=== PATIENT | male | born 1960 | race Caucasian/White ===

== ENCOUNTER → 2016-08-05 | Outpatient (CLI) | payer MEDICARE, OTHER ==
[~2016-08-05] MED LIST: SALINE FLUSH 10ml SYRINGE ONE; SINCALIDE 5 MCG/VIAL IJ ONE; SODIUM CHLORIDE (Bacteriostatic) 30ml VIAL ONE
--- NOTE | 2016-08-05 10:29 | DI ---
Indication: ITS.REASON: R10.11 RUQ ABD PAIN; D72.829 LEUKOCYTOSIS PROCEDURE: NM HEPATOBIL/EF: Encounter: Initial Comparison: None Technique: 6.5 mCi of Tc-99m mebrofenin was injected intravenously. At approximately 61 minutes following this administration, 2.4 mcg of Kinevac was administered intravenously. Anterior planar images were obtained and a time/activity curve was calculated. FINDINGS: Radiotracer uptake is seen homogenously within the liver. There is normal clearance of radiotracer from the blood pool. The common bile duct is visualized at approximately 6 minutes. The gallbladder is visualized by 7 minutes, and radiotracer is excreted into the small bowel. There is no evidence of radiotracer outside the biliary or gastrointestinal tract. The gallbladder ejection fraction is normal at 85%. IMPRESSION: 1. Gallbladder visualization excluding acute cholecystitis. 2. Normal gallbladder ejection fraction of 85%, excluding biliary dyskinesia. .
== END ==
LOC: IMA 07:46
PROVIDERS: ATTEND Surgery
DX: R10.11 Right upper quadrant pain (principal); D72.829 Elevated white blood cell count, unspecified
CPT/HCPCS: 78227; A9537; J2805